=== PATIENT | female | born 1955 | race Caucasian/White ===

== ENCOUNTER 2016-12-18 16:45 | Inpatient (IN) | payer OTHER ==
[2016-12-18 18:21] LABS: Hematocrit 27 % (35-47); Hemoglobin 9.3 g/dl (12.0-16.0); Mean Corpuscular HGB Conc 34 g/dl (31-36); Mean Corpuscular Hemoglobin 30 pg (27-31); Mean Corpuscular Volume 90 fL (80-97); Mean Platelet Volume 8 um3 (7.4-10.4); Red Blood Count 3.05 10^6/ul (4.0-5.4); Red Cell Distribution Width 16 % (10.5-15); White Blood Count 22.9 10^3/ul (3.5-10.8)
[2016-12-18 18:34] LABS: Albumin 3.2 g/dL (3.2-5.2); Calcium 9.1 mg/dL (8.6-10.3); EGFR African American 16.9 (>60); EGFR Non-African American 13.1 (>60); Globulin 3.8 g/dL (2-4); Total Bilirubin 0.7 mg/dL (0.2-1.0)
[2016-12-18 18:37] LABS: Potassium 5.4 mmol/L (3.5-5.0)
[2016-12-18] MEDS ORDERED: Vancomycin(*) 1,500 MG in NS 0.9% 250 ML* 250 ML IVPB ONE (18:49)
[2016-12-18 18:53] LABS: BUN/Creatinine Ratio 52.1 (8-20)
[2016-12-18] MEDS ORDERED: NS 0.9% 250 ML* 250 ML IV SCH (19:00)
[2016-12-18] MEDS ORDERED: Metolazone TAB* 5 MG PO ONE (20:52)
[2016-12-18] MEDS ORDERED: Furosemide IV* 10 MG/ML VIAL (40 MG) IV SLOW PU ONE (20:52)
[2016-12-18] MEDS ORDERED: Acetaminophen TAB* 325 MG PO PRN (20:52)
[2016-12-18] MEDS ORDERED: cefTRIAXone VIAL(*) 1,000 MG in NS 0.9% 50 ML* 50 ML IVPB SCH (21:00)
[2016-12-18] MEDS ORDERED: nitroGLYCERIN DRIP* 25,000 MCG in PREMIX* 0 ML IV SCH (21:00)
[2016-12-18] MEDS ORDERED: Dextrose 50% Syringe 50 ML* 25 GM/50 ML SYRINGE IV PUSH PRN (21:01)
[2016-12-18 21:05] LABS: Urine Bacteria 1+ (Absent); Urine Bilirubin Negative (Negative); Urine Glucose Negative (Negative); Urine Nitrite Negative (Negative)
--- NOTE | 2016-12-18 21:19 | RAD ---
Indication: Rales, sepsis. Single frontal view of the chest performed at 2040 hours was reviewed. Comparison is made with previous exam dated October 28, 2015. Cardiomegaly is noted. Right perihilar infiltrate is noted which is suspicious for pneumonia. No pleural fluid is identified. Right upper lobe right base appears to BE relatively clear. IMPRESSION: RIGHT PERIHILAR DENSITY CONSISTENT WITH RIGHT PERIHILAR PNEUMONIA.
[2016-12-18] MEDS ORDERED: Albuterol 2.5 MG/3 ML NEB.SOL* (0.083%) INH PRN (21:33)
[2016-12-18] MEDS: Milrinone* 100 ML IVPB SCH (22:53)
--- NOTE | 2016-12-18 23:03 | CONS ---
NEPHROLOGY CONSULTATION: DATE OF CONSULTATION: 12/18/16 HISTORY OF PRESENT ILLNESS: Ms. Collado is a 59-year-old female with a history of end-stage congestive heart failure who presents with decreased urinary output , weakness, and fatigue. She has had some anorexia. Interestingly enough, she states that she was not breathing bad and while she has to sit up to breathe, she does not complain of real orthopnea. I think her mental acuity may not be all that great right now. She has been noticing a little bit worsening edema. Here in the emergency room, she has been found to have a markedly elevated serum BUN and an elevated serum creatinine. PAST MEDICAL HISTORY: Includes COPD with both restrictive and obstructive component. She has a history of congestive heart failure with cor pulmonale. She has a history of diabetes mellitus type 2, an old history of colon cancer, and she has a known ejection fraction of less than 20%. She has been declined for a left ventricular assist device and for heart transplant. MEDICATIONS: Have included: 1. Magnesium 400 mg twice a day. 2. Metolazone 2.5 mg 3 times a week. 3. Spiriva 1 capsule daily. 4. Aspirin 81 mg daily. 5. Vitamin C 500 mg daily. 6. Morphine 1 to 2 mg every 2 hours. 7. Reglan 5 mg t.i.d. 8. Claritin 10 mg daily. 9. Ventolin 2.5 mg inhaled every 4 hours p.r.n. 10. Nicotine patch 14 mg transdermally daily. 11. Lantus daily. 12. Trazodone 50 mg at bedtime. 13. Demadex 20 mg daily. 14. P.r.n. Xanax. 15. Spironolactone 50 mg daily. 16. Potassium 20 mEq daily. 17. Omeprazole 40 mg daily. 18. Metoprolol 25 mg daily. 19. Advair 1 puff twice a day. 20. Sliding scale of insulin 21. Atorvastatin 80 mg daily. ALLERGIES: She is allergic to DARVON. FAMILY HISTORY: Significant in that her mother had a myocardial infarction. SOCIAL HISTORY: She is . Lives with her . She still smokes 5 cigarettes per day. She has not used alcohol. REVIEW OF SYSTEMS: She thinks she has a urinary tract infection. She had some dysuria recently before she stopped passing urine. She has no visual disturbances. No chest pain. There is anorexia. She has had some nausea, but no vomiting. There are no arthropathies. PHYSICAL EXAM: She is an obese white female who actually appears to be quite comfortable lying at about 45 degrees of elevation. Her heart rate is 101. Blood pressure is 112/66 with a respiratory rate of 18. Her O2 saturation was 96%. There is no jugular venous distention. She is anicteric. Her mucous membranes are dry. She has been mouth breathing. She had bibasilar rales. The heart revealed a regular rhythm. I could not hear any murmurs. The abdomen is distended, nontender. While I could not feel a liver margin, she had a positive hepatojugular reflux. extremities revealed minimal acrocyanosis. She had 2+ edema. DIAGNOSTIC STUDIES/LAB DATA: Review of her laboratory values reveals a white count of 22.9, hemoglobin of 9.3, hematocrit of 27. Sodium 116, potassium 5.4, total CO2 32 with chloride of 72, BUN is 184. Her baseline BUN in October was in the 80s and 90 range. Her creatinine is 3.53. Her creatinine in October was approximately 2. A urinalysis has not been produced at present. A Avalos catheter is being placed. IMPRESSION: Acute on chronic renal insufficiency. This is highly likely to be on the basis of worsening congestive heart failure. It is manifested by markedly widening BUN to creatinine ratio. She may have urinary tract infection as a decompensating factor. In addition, she has hyponatremia and hyperkalemia. DISCUSSION: I think dialysis is out of the question. In her situation, she will not be able to make compensation with her cardiac output without any fluid that is removed rapidly removed by dialysis. CVVH is not available at the present time here. It is the opinion of the emergency room staff that she would not be stable enough to be transferred for that. As a result, I think we are going to need to try to diurese some fluid out of her without producing intractable shock. I would wrap her legs and arms in Vasquez wraps. I started her on some nitrates by drip so that it could be titrated. I will start her on some intravenous morphine to also vasodilator on the venous circulation. Obviously, her prognosis is markedly guarded. I have discussed her case with Dr. Dallas and Armand Aguilar as well as Dr. Krueger here in the emergency room. [id number]/[facility] #: [id number] TOMER
[2016-12-18] MEDS: Albuterol/Ipratropium NEB.SOL* Albuterol 2.5 MG/Ipratropium 0.5 MG 3 ML INH SCH (23:08)
[2016-12-18 23:10] LABS: PCO2 Arterial 59 mmHg (35-45)
[2016-12-18] MEDS ORDERED: DOXYcycline IV* 100 MG in NS 0.9% 250 ML* 250 ML IVPB SCH (23:30)
[2016-12-19 00:16] LABS: Calcium 8.7 mg/dL (8.6-10.3); EGFR African American 16.9 (>60); EGFR Non-African American 13.1 (>60)
[2016-12-19 00:37] LABS: BUN/Creatinine Ratio 53.8 (8-20)
--- NOTE | 2016-12-19 00:44 | HP ---
CC: Dr. Perez; Dr. Rizvi; Dr. Bettencourt; Dr. Abernathy; Dr. Gerber * HISTORY AND PHYSICAL: DATE OF ADMISSION: 12/18/16 PRIMARY CARE PROVIDER: Dr. Perez. ATTENDING PHYSICIAN WHILE IN THE HOSPITAL: Dr. Charlee Dallas * (report dictated by Maciej Aguilar NP). CONSULTING CRACK OFF PERSON: Dr. Rizvi. CONSULTING SUPERVISOR RECEIVING AND PROCESSING: Dr. Bettencourt. CONSULTING GATE ATTENDANT: Dr. Abernathy. CHIEF COMPLAINT: 1. Shortness of breath. 2. Altered mental status. HISTORY OF PRESENTING ILLNESS: Mrs. Collado is a 61-year-old female patient with a very complex medical history. She carries a history of COPD, CHF, history of diabetes, cardiomyopathy, her last known EF here was less than 20%, coronary artery disease. She has been evaluated at [facility] for LVAD and heart transplant and they had said that she would not be a candidate due to her severe COPD. They felt that she will not survive the procedure and not be able to be liberated from the ventilator, so these procedures were not offered. Unfortunately, for the last couple of weeks, she has had progressive worsening decline. They have noticed for the last 48 hours that she has not been making any urine. She has been having difficulty with mentation. She had been drowsy and they have noted that she has probably made a cup of urine. The family was concerned today because she was more sleepy, more drowsy and she came into the hospital. The patient admits of feeling of having orthopnea. She denies having any chest discomfort and denies having any abdominal pain and no recent fevers or chills, but she does admit that she has been feeling more drowsy, more tired, and more lethargic. The patient was came in, was evaluated. It was noted that she appear to be in acute renal failure. She appeared to have a white count of 22,000. In addition to this, she was hyponatremia. She appeared to be fluid overloaded. Because of these findings, we were asked to evaluate for admission. PAST MEDICAL HISTORY: Significant for: 1. COPD, on chronic oxygen. 2. CHF. 3. Diabetes. 4. Cardiomyopathy, last known EF was less than 20%. 5. CAD, single-vessel disease. PAST SURGICAL HISTORY: She has had heart catheterization in [place] and she had tubal ligation. HOME MEDICATIONS: According to the bottles brought in includes: 1. Insulin lispro sliding scale. 2. Lantus 30 units subcu q.p.m. 3. Xanax 0.25 mg p.o. t.i.d. as needed. 4. Roxanol 1 mL p.o. every 4 hours as needed. 5. Trazodone 50 mg p.o. at bedtime as needed. 6. Spiriva 1 capsule inhaled daily. 7. Advair 1 puff inhaled b.i.d. 8. Ventolin 2.5 mg inhaled every 4 hours as needed. 9. Prilosec 40 mg p.o. daily. 10. Reglan 5 mg p.o. t.i.d. 11. Demodex 80 mg p.o. b.i.d. 12. Potassium chloride 20 mEq p.o. daily. 13. Metolazone 2.5 mg p.o. daily. 14. Magnesium oxide 400 mg p.o. b.i.d. 15. Lipitor 80 mg p.o. daily. 16. Claritin 10 mg daily. 17. Ibuprofen 800 mg every 8 hours as needed. 18. Spironolactone 50 mg p.o. daily. 19. Metoprolol 25 mg p.o. daily. 20. Aspirin 81 mg daily. ALLERGIES TO MEDICATIONS: Include DARVOCET. FAMILY HISTORY: Mother had a history of CAD. Father's history is unknown. SOCIAL HISTORY: She is a half a pack a day smoker. She does not drink alcohol. Surrogate decision maker is her and her [id number]. REVIEW OF SYSTEMS: There is a weight change, she is unsure of how much. She denied any fevers or chills. She denied having any abdominal pain. There was no nausea. There was no vomiting. She denied having any chest pain or shortness of breath. She denied having any abdominal pain. She denied any chest pain. She denied having any loss of consciousness. No pruritus and no skin ulcerations. Review of 14 systems completed, all others negative. PHYSICAL EXAMINATION GENERAL: At this time, Mrs. Collado is a 61-year-old female patient. She is sitting in the ED stretcher. She awakens to her name only, but she is very drowsy. VITAL SIGNS: Blood pressure 112/66, pulse 101, respirations 18, O2 sat 95%, temperature 97.5. HEENT: Head: Atraumatic. Eyes: Pupils are reactive to light. Throat: Oral mucosa appears to be moist. No oropharyngeal erythema. NECK: Supple. LUNGS: She did have rhonchi in the upper lobes, crackles in the bases. Equal diaphragmatic expansion. HEART: Sounds S1, S2. Regular rate and rhythm. No murmurs, rubs, or gallops. ABDOMEN: Soft, flat, nontender. Bowel sounds present. EXTREMITIES: She had +3 pitting edema bilaterally. She had 5/5 strength. NEUROLOGICAL: Again drowsy. She will awaken to her name. She will follow simple commands and then she quickly falls back asleep. No gross focal deficits. SKIN: Intact. DIAGNOSTIC STUDIES/LAB DATA: WBC of 22.9, RBC of 3.05, hemoglobin 9.7, hematocrit of 27. Her baseline H and Hs previously read around 11 and 10. The sodium was 116, potassium 5.4, chloride is 72, bicarb 32, BUN 187, creatinine of 3.53, glucose 81, lactate 0.7, calcium 9.1. Total bili 0.7, AST 31, ALT 17, alk phos 228. BNP 237. Albumin of 3.2. Urine showed 3+ leukocyte esterase, 1 + bacteria. Chest x-ray obtained today, impression: Right perihilar density consistent with right perihilar pneumonia. EKG obtained today shows a sinus tachycardia at a rate of 90 with a left bundle branch block incomplete. The EKG appears to be unchanged, previously she appeared to be in aflutter. Last echo did show an EF of less than 20%. Old medical records reviewed. ASSESSMENT AND PLAN: Mrs. Collado is a 61-year-old female patient with complex medical history, coming in the ER today with complaints of altered mental status , not feeling well, decreased urinary output. On evaluation here today, she was noted to have multiple abnormalities and possible pneumonia. She will be admitted under inpatient status for: 1. Congestive heart failure exacerbation with now associated acute renal failure most likely cardiorenal. This was probably brought on by an underlying infection such as pneumonia. She has the white count here. Unfortunately giving her fluids at this point, she does appear to be fluid overloaded. We cannot give her fluids. The plan would be at this point to treat the infection with IV antibiotics and also treat her congestive heart failure and her renal failure with aggressive therapy. I am actually going to diurese her and put her on milrinone as well, Zaroxolyn, Lasix. Dr. Bettencourt did order recommended trying wrapping lower extremities and the upper extremities without the IV until tomorrow morning when he evaluates the patient to see if we can increase venous return and hopefully we can again with no known increase the inotropic activity and hopefully increase her cardiac output and hopefully diurese the fluid as she does appear to be actually fluid overloaded at this point. We will give her Lasix. We will also put her on nitro. In addition to this, we will give her some morphine as well along with Lasix and metolazone. We will get an echo. We will cycle her troponins. Cardiology was consulted. They recommended again Lasix, metolazone, possibly dobutamine. We are going to use milrinone, as previously dobutamine has made her renal function much worse. 2. Pneumonia. Again, we will put her on doxycycline, in addition to this Rocephin. We will try to get sputum cultures if possible. Blood cultures were sent. She has been pancultured and we will follow closely. I did order nebs and I am going to hold off on steroids as this could exacerbate her heart failure. 3. Diabetes. She will be on lispro sliding scale every 6 hours. We are holding, as she is n.p.o. 4. Acute renal failure. Again, this is probably cardiorenally from decreased cardiac output state and now again being exacerbated by pneumonia. We will treat the pneumonia and try to increase cardiac output with milrinone. 5. Coronary artery disease. She is not complaining of chest pain. We will continue to follow. 6. DVT prophylaxis. She will be placed on heparin subcu. 7. Code status. She is actually a DNR/DNI. 8. Hyponatremia. This is probably secondary to fluid overload. I do note that her H and H is down too. Again, this is probably delusional from fluid overload, which we are again going to aggressively try to treat her with nitro, morphine, Lasix, metolazone, and lower extremity wrapping and upper extremity wrapping as well. For the acute renal failure, again I will check CLL workup and Dr. Bettencourt has been evaluated. Dialysis was again not offered, as she will not most likely survive it. 9. Fluids, electrolytes, and nutrition. She is n.p.o. Should she awake, we are going to consistent carb diet. 10. Prognosis is extremely poor in this patient. She has multisystem organ failure secondary to again poor cardiac output due to cardiomyopathy, in addition to this also has severe chronic obstructive pulmonary disease, requiring O2, in addition to this also appears to be in renal failure. Prognosis is poor. I did discuss with the family that despite these efforts, she could deteriorate still and at that point, the family felt that they actually wanted to turn off her external defibrillator because they want to make her do no resuscitate/do not intubate. At this point, they said if she were to fail, they would want to keep her comfortable. I did discuss this with my attending, Dr. Dallas, she is in agreement. TIME SPENT: Time spent on the admission was 90 minutes is critical care time, greater than half the time was spent [id number] with the patient, other half of the time spent going over the plan of care with the patient and implementing the plan of care. I did discuss the plan of care with my attending, they are in agreement. MACIEJ AGUILAR NP [id number]/[facility] #: [id number] MTDNabil
[2016-12-19] MEDS: Insulin LISPRO* 1 UNITS UNIT SUBCUT SCH ×3 (00:47→13:57)
[2016-12-19] MEDS ORDERED: nitroGLYCERIN DRIP* 25,000 MCG in PREMIX* 0 ML IV SCH (00:48)
[2016-12-19] MEDS ORDERED: nitroGLYCERIN DRIP* 250 ML ONE (01:01)
[2016-12-19] MEDS: Morphine INJ* 2 MG/ML 1 ML SYRINGE (TWO MG - NEW SYRINGE VERSION) IV PRN ×5 (01:03→13:57)
[2016-12-19 01:42] LABS: Potassium 5.7 mmol/L (3.5-5.0)
[2016-12-19] MEDS: Albuterol/Ipratropium NEB.SOL* Albuterol 2.5 MG/Ipratropium 0.5 MG 3 ML INH SCH ×5 (03:02→16:44)
[2016-12-19 05:20] LABS: Hematocrit 23 % (35-47); Hemoglobin 7.9 g/dl (12.0-16.0); Mean Corpuscular HGB Conc 34 g/dl (31-36); Mean Corpuscular Hemoglobin 31 pg (27-31); Mean Corpuscular Volume 91 fL (80-97); Mean Platelet Volume 8 um3 (7.4-10.4); Red Blood Count 2.57 10^6/ul (4.0-5.4); Red Cell Distribution Width 16 % (10.5-15); White Blood Count 18.3 10^3/ul (3.5-10.8)
[2016-12-19 05:28] LABS: Calcium 8.3 mg/dL (8.6-10.3); EGFR African American 16.1 (>60); EGFR Non-African American 12.5 (>60)
[2016-12-19] MEDS ORDERED: NS 0.9% 250 ML* 250 ML IV ONE (05:35)
[2016-12-19 05:41] LABS: Potassium 5.9 mmol/L (3.5-5.0)
[2016-12-19 06:08] LABS: BUN/Creatinine Ratio 51.4 (8-20)
[2016-12-19] MEDS ORDERED: Dextrose 50% Syringe 50 ML* 25 GM/50 ML SYRINGE IV PUSH PRN (07:00)
[2016-12-19] MEDS ORDERED: Insulin REGULAR(*) 1 UNITS UNIT IV PUSH ONE (07:00)
[2016-12-19] MEDS ORDERED: Budesonide NEB* 0.5 MG/2 ML NEB.SOLN INH SCH (07:00)
[2016-12-19] MEDS ORDERED: Sodium Polystyrene ORAL.SOL* 15 GM/60 ML BTL PO ONE (07:01)
[2016-12-19] MEDS ORDERED: Calcium Gluconate INJ* 1 GM in NS 0.9% 50 ML* 50 ML IVPB ONE (08:00)
[2016-12-19] MEDS ORDERED: Atropine 1% (ORAL/SL)* 15 ML BTL SL PRN (08:50)
[2016-12-19] MEDS ORDERED: Nicotine Inhaler* 10 MG AMP INH PRN (08:50)
[2016-12-19] MEDS ORDERED: Mouth Piece, Nicotine* 1 EACH CARTRIDGE INH PRN (08:50)
[2016-12-19] MEDS ORDERED: Nicotine PATCH 14 MG/24 HR* PATCH TRANSDERM SCH (09:00)
--- NOTE | 2016-12-19 10:03 | PN ---
PROGRESS NOTE DATE: 12/19/16 Ms. Collado has not done very well over night. Her blood pressure has been quite low, typically in the 60s. She has not responded with very much urine at all. She's arousable this morning. She complains of pain all over. She seems to be breathing rather easily to observed her. Her O2 saturation is in the mid 90s to 98. Her chest reveals scattered rhonchi. Heart revealed a regular rhythm without murmurs. She still has 2+ edema. White count is 18.3, hemoglobin 7.9, sodium is still 116, potassium now 5.9. She has received Kayexalate. BUN 189, creatinine 3.68. IMPRESSION: 1. Congestive heart failure. 2. Acute renal injury. 3. Hyponatremia. 4. Hyperkalemia. I don't think we have much more to offer at the present time. Dr. Pompa has been in contact with her , and apparently she's going to be moving to hospice- based mode of intervention. I have no new recommendations at this point. [id number]/[facility] #: [id number] [facility]
[2016-12-19] MEDS: LORazepam INJ* 2 MG/ML 1 ML VIAL IV PUSH PRN ×2 (10:24→13:57)
--- NOTE | 2016-12-19 11:46 | CONS ---
CC: Dr. Misael Perez, Hospitalist Service; Dr. Fox Gerber * CONSULTATION REPORT: DATE OF CONSULTATION: 12/19/16 REASON FOR CONSULTATION: Biventricular congestive heart failure. CHIEF COMPLAINT: Swelling. HISTORY OF PRESENT ILLNESS: Lizz Collado is a 61-year-old woman followed by my partner, Dr. Fox Gerber, with biventricular cardiomyopathy and longstanding stage 4 congestive heart failure. She is an active smoker and has had progressive swelling of the bodies, particularly her legs, for which she presented. In the emergency department, she was found to be hyponatremic, anuric, volume-overloaded, and hypotensive. The patient continues to feel poorly this morning. She denies feeling more short of breath and she was vague about the specifics of her discomfort. The patient denied any recent changes in medication, admits to ongoing smoking. PAST MEDICAL HISTORY: 1. Severe biventricular congestive heart failure: Echo from 09/19/15 shows a left ventricular ejection fracture 25% to 30%, moderate decrease in RV systolic function, trace mitral insufficiency, mild tricuspid insufficiency, and PA pressure 55 mmHg. 2. COPD, severe, chronic oxygen. PFTs in 2016 showed severe combined obstructive restriction and severely reduced diffusion. 3. Renal insufficiency (baseline creatinine in 2016 approximately 1.7). 4. Diabetes. 5. Sleep apnea. 6. Depression. 7. Reflux. 8. Anxiety. 9. Obesity. 10. Coronary artery disease. 11. Left heart cath done at [facility] on 05/25/15 showed single - vessel disease, severe in the right coronary artery and branch OM1 with collateral flow. 12. Consultation with [facility] done in 2016 extensively, not a candidate for LVAD or RVAD. She is not a candidate for heart transplant due to severe pulmonary disease, not felt to be a candidate for a defibrillator or PUBLICITY MANAGER device. PAST SURGICAL HISTORY: Includes tubal ligation and past procedural history includes multiple cardiac catheterizations. MEDICATIONS: Inpatient include: 1. Tylenol. 2. Ventolin nebulizer. 3. DuoNeb. 4. Atropine p.r.n. 5. Pulmicort nebulizers. 6. Ceftriaxone. 7. Nicotine mouth piece. 8. Doxycycline. 9. Humalog insulin. 10. Ativan p.r.n. 11. Primacor drip. 12. Morphine p.r.n. 13. Nicotine inhaler. 14. Nicotine patch. Outpatient medications had included: 1. Albuterol. 2. Trazodone. 3. Prilosec. 4. Spironolactone 50 mg a day. 5. Oxygen. 6. Atorvastatin 80 mg a day. 7. Lantus and Humalog insulin. 8. Magnesium oxide. 9. Torsemide 20 mg a day. 10. Toprol-XL 25 mg a day. 11. Advair Diskus. 12. Aspirin 81 mg a day. 13. Morphine sulfate. 14. Cipro. 15. Prednisone 20 mg a day (as of 10/17/16). ALLERGIES: Include DARVON (nausea, vomiting). FAMILY HISTORY: Significant for coronary disease with her mother. Father's history is unknown. SOCIAL HISTORY: The patient is an active smoker as above. Drinks coffee regularly. . Her is active in her care. No history of alcohol intake. REVIEW OF SYSTEMS: Positive for progressive increasing swelling in the lower extremities, chronic orthopnea, chronic exertional dyspnea. She said she has been anorexic. She has not been urinating much. She denies chest pain, pressure, heaviness. She denies any recent fevers, chills, sweats, coughing, headaches, earaches, or dysuria. All other 14-point review of systems is negative. PHYSICAL EXAM: The patient is lying in bed, 20 degrees, with a Ventimask on, appears chronically ill. She is 5 feet 3 inches, weighs 158 pounds. Blood pressure 75/23, pulses of 110-115, sinus tachycardia, oxygen saturation with her Ventimask is 95% to 97% (10 L oxygen flow), temperature 97.9. Neurologically, she is arousable, but is not wanting to talk much. She does follow commands. Speech is articulate. Comprehension is good. Formal neurological exam not done. I do not appreciate gross sensory or motor deficits , but she is not very cooperative. Skin: Very dry, rough, sand-papery. I did not appreciate cyanosis of the lips. HEENT: Pupils are equal and round. Mucous membranes dry. Neck: Hard to evaluate due to positioning, but no pulsatile veins noted. No thyromegaly appreciated. Lungs: Breath sounds diffuse rhonchi anteriorly and posteriorly, more prominent posteriorly. No wheezing heard. Diminished breath sounds anteriorly. Coronary: S1, S2, regular , tachycardic with a gallop. No murmurs heard. Abdomen: Right upper quadrant is tender with a pulsatile, enlarged liver. No epigastric discomfort appreciated. I did not get an optimal exam due to the patient's tenderness. Lower extremities show swelling below the knees, 2 to 3+. She has some ecchymosis near the right mid toe, mild, appears superficial. DIAGNOSTIC STUDIES/LABORATORY DATA: Sodium 116, potassium 5.9, chloride 73, bicarb 27, BUN 189, creatinine 3.68, glucose 113. ALT 17, AST 31. BNP of 237. Urinalysis: Specific gravity 1.012, 1+ blood, 3+ leukocyte esterase, 3+ white cells. ABG from the shows pH 7.38, pCO2 59, pO2 96, oxygen saturation 93.4. White count 18.3, hemoglobin 7.9, hematocrit 23, and platelets 219. EKG from 10/18/16 shows sinus tachycardia, having trouble bringing this up. Chest x-ray showed right perihilar density consistent with right perihilar pneumonia. Outpatient Studies: Echocardiogram as above. SUMMARY: Lizz Collado is a 61-year-old woman with severe chronic obstructive pulmonary disease, severe biventricular congestive heart failure, and history of significant renal insufficiency in the past, now presenting with volume overload, lower extremity edema, and severe hypotension, which I feel represents end-stage disease, combination of end-stage pump failure and end- stage chronic obstructive pulmonary disease contributing to severe renal insufficiency. In terms of her trying to improve her cardiac output, mechanical solutions are not an option as above. She has been extensively evaluated at the [facility] in the past. Milrinone has been tried in the past to assist with stabilization and very reasonable to re-try, but in the past has not led to durable stabilization. She is currently not a good candidate for IV diuretics due to her profound hypotension. Pressors could be tried, but there is significant risk with this of additional sinus tachycardia, AFib, ventricular dysrhythmias. I feel Lizz is end-stage and an appropriate candidate for comfort measures such as [facility]. If we proceed with this, I would recommend discontinuation of the LifeVest. Her electrolyte abnormalities are noted and I feel related to her renal insufficiency as well as her congestive heart failure, but we will defer to Dr. Hesson in terms of stabilization. I do not feel Cardiology has any additional recommendations to offer over those that have been tried in the past. Thank you for allowing me to assist in this nice, but very ill and unfortunate woman's care. [id number]/[facility] #: [id number] MTDD
--- NOTE | 2016-12-19 13:49 | PN ---
Subjective Date of Service: 12/19/16 Interval History: HOSPITALIST PROGRESS NOTE Patient seen and examined at bedside. Lying in bed, moaning, answers questions when asked, but does not open eyes. Denies pain, but doesn't feel well. Family History: Unchanged from Admission Social History: Unchanged from Admission Past Medical History: Unchanged from Admission Objective Active Medications: Acetaminophen (Tylenol Tab*) 650 mg PO Q4H PRN PRN Reason: FEVER/PAIN Albuterol (Ventolin 2.5 Mg/3 Ml Neb.Dena*) 2.5 mg INH Q4H PRN PRN Reason: SHORTNESS OF BREATH Albuterol/Ipratropium (Duoneb (Albuterol 2.5 Mg/Ipratropium 0.5 Mg)) 1 neb INH Q4H [facility] Last Admin: 12/19/16 12:12 Dose: 1 neb Atropine Sulfate (Atropine 1% (Oral/Sl)*) 2 drop SL Q2H PRN PRN Reason: Terminal secretions Budesonide (Pulmicort Neb*) 0.5 mg INH RT.BID [facility] Last Admin: 12/19/16 07:40 Dose: 0.5 mg Device (Nicotine Mouth Piece*) 1 each INH .USE WITH NICOTROL PRN PRN Reason: CRAVING Dextrose (D50w Syringe 50 Ml*) 12.5 gm IV PUSH .FOR FS < 60 - SS PRN PRN Reason: FS < 60 Dextrose (D50w Syringe 50 Ml*) 25 gm IV PUSH ONCE PRN PRN Reason: FS < 60 Last Admin: 12/19/16 08:41 Dose: 25 gm Milrinone Lactate/Dextrose (Primacor*) 100 mls @ 5.613 mls/hr IVPB .Q24H WES PRN Reason: 0.25 MCG/KG/MIN Last Admin: 12/18/16 22:53 Dose: 5.613 mls/hr Ceftriaxone Sodium 1,000 mg/ (Sodium Chloride) 50 mls @ 200 mls/hr IVPB Q24H [facility] Last Admin: 12/18/16 23:47 Dose: 200 mls/hr Doxycycline Hyclate 100 mg/ (Sodium Chloride) 250 mls @ 250 mls/hr IVPB Q12H [facility] Last Admin: 12/19/16 00:29 Dose: 250 mls/hr Insulin Human Lispro (Humalog*) 0 units SUBCUT Q6HR [facility] PRN Reason: Protocol Last Admin: 12/19/16 06:09 Dose: 2 units Lorazepam (Ativan Inj*) 0.5 mg IV PUSH Q4H PRN PRN Reason: ANXIETY Last Admin: 12/19/16 10:24 Dose: 0.5 mg Morphine Sulfate (Morphine Inj (Syringe)*) 2 mg IV Q2H PRN PRN Reason: Pain/Tachypneic RR>24 Last Admin: 12/19/16 10:24 Dose: 2 mg Nicotine (Nicotine Inhaler*) 10 mg INH Q2H PRN PRN Reason: CRAVING Nicotine (Nicotine Patch 14 Mg/24 Hr*) 1 patch TRANSDERM DAILY [facility] Last Admin: 12/19/16 12:05 Dose: 1 patch Pharmacy Profile Note (Nicotine Patch Removal Note*) 1 note FOLLOW UP 2100 [facility] Vital Signs 12/19/16 12/19/16 12/19/16 11:00 11:15 12:10 Temperature 98.6 F 98.6 F Pulse Rate 114 118 110 Respiratory 14 12 20 Rate Blood Pressure 86/38 72/41 (mmHg) O2 Sat by Pulse 91 90 93 Oximetry Oxygen Devices in Use Now: Nasal Cannula - 3 liters Appearance: Middle aged lady lying in bed in [facility], but appears uncomfortable. Eyes: No Scleral Icterus Ears/Nose/Mouth/Throat: Mucous Membranes Moist Neck: Trachea Midline Respiratory: Symmetrical Chest Expansion and Respiratory Effort, - - BS+ bilaterally with bilateral crackles Cardiovascular: RRR - Normal S1 and S2 Abdominal: - - Soft, tender hepatomegaly, NG, NR, BS+ Extremities: - - Bilateral 2+ LE pitting edema Neurological: - - Arousable to voice, Ox2 (self and place) Lines/Tubes/Other Access: Clean, Dry and Intact Peripheral IV Nutrition: Taking PO's Result Diagrams: 12/19/16 04:45 12/19/16 04:45 Assess/Plan/Problems-Billing Assessment: Mrs. Collado is a 61yo F with PMH of severe biventricular CHF with EF 25%, severe COPD on home O2, current tobacco abuse, CKD stage 3, type 2 DM, YUE, CAD , who presented to ED with c/o progressive SOB, edema, and oliguria. - Patient Problems (1) End stage heart failure Comment: - Cardiology input appreciated - patient has advanced disease, not a candidate for ICD, LVAD, or transplant. - Milrinone can be continued, but did not lead to durable stabilization in the past. - Dr. Mariano feels Cardiology does not have any other recommendations to add. (2) Cardiorenal syndrome with renal failure Comment: - Patient has CKD at baseline, now with worsening edema, low urine output, and elevated creatinine. - Nephrology input appreciated - Dr. Bettencourt feels he does not have anything else to offer at this time. (3) Advanced chronic obstructive pulmonary disease Comment: - Despite advanced disease and oxygen dependency, patient continues to smoke. - No signs of exacerbation at this time. - Continue bronchodilators and steroids. (4) Acute on chronic respiratory failure with hypoxemia Comment: - Multifactorial secondary to COPD, CHF, pneumonia. - Continue supplemental O2. (5) Severe sepsis Comment: - Met sepsis criteria on admission with tachycardia and leukocytosis, has respiratory and renal failures. - Source is pneumonia. (6) Pneumonia Comment: - CxR shows right perihilar infiltrate. - Blood cultures show no growth so far. - Check Legionella and pneumococcal Ags. - Continue Ceftriaxone and Doxycycline. (7) DM type 2 (diabetes mellitus, type 2) Comment: - Continue FS and Lispro SS. (8) DVT prophylaxis Comment: - Goal now is comfort, will not give SQ heparin. - SCDs as tolerated. (9) DNR (do not resuscitate) (10) End of life care Comment: - Lengthy conversation with patient's - he understands her very poor condition and is very realistic about her poor prognosis. Interested in Hospice - consult already requested. He states her LifeVest battery was already disconnected. Status and Disposition: Inpatient.
[2016-12-19] MEDS: Milrinone* 100 ML IVPB SCH (15:29)
[2016-12-19] MEDS ORDERED: Morphine INJ* 4 MG/ML 1 ML CARPUJECT IV PRN (15:51)
[2016-12-19] MEDS ORDERED: Milrinone* 100 ML IVPB SCH (16:00)
[2016-12-19] MEDS ORDERED: Nicotine Patch Removal NOTE FOLLOW UP SCH (21:00)
[2016-12-20 04:50] VITALS: BP 0/0
--- NOTE | 2016-12-20 05:13 | PN ---
Progress Note - Progress Note Date of Service: 12/20/16 Note: I was called by the patient's nurse at 0235 that the patient was asystolic and presented to the bedside. Her family was in the waiting room and they were brought back to the patient's bedside. I auscultated the patient's chest and heard no breath sounds or heart sounds. Time of was called at 0235. Cause of cardiogenic shock secondary to cardiorenal syndrome, end stage CHF and end stage COPD contributing.
--- NOTE | 2016-12-20 15:03 | DS ---
CC: Dr. Gerber; Dr. Perez* DISCHARGE/ SUMMARY: DATE OF ADMISSION: 12/18/16 DATE OF /DISCHARGE: 12/20/16 PRIMARY CARE PROVIDER: Dr. Perez. SENIOR BUSINESS BROKER: Dr. Gerber. HOSPITAL COURSE: Ms. Collado was a 61-year-old female with a history of end- stage COPD, end-stage systolic congestive heart failure with an EF less than 20% , on a LifeVest, who presented to the emergency room with shortness of breath and altered mental status. The patient had progressive decline over the couple of weeks prior to admission. Over 48 hours prior to admission, the patient had not been making any urine and had been having a difficult time with mentation. The patient was found to be in acute renal failure and possibly septic secondary to pneumonia. Additionally, the patient was fluid overloaded. The patient was admitted to the intensive care unit after consultation with Dr. Bettencourt. Unfortunately, the patient became severely hypotensive. She was requiring milrinone. Ultimately, the patient was made comfort care in the evening of 12/19/16. The morning of 12/20/16, the patient had a prolonged episode of ventricular tachycardia. The patient's family had previously taken the battery out of her LifeVest, as they did not want her shocked. Following the ventricular tachycardia, the patient became asystolic. At 02:35, I was contacted by the patient's nurse that the patient had . I immediately presented to the bedside and auscultated the patient's chest and heard no heart or breath sounds. Time of was called at 02:35 on 12/20/16. Cause of is cardiogenic shock secondary to cardiorenal syndrome and end-stage systolic CHF. Contributing factors include end-stage COPD and acute renal failure. [id number]/CPS #: [id number] MTDD
== END 2016-12-20 02:35 | disposition expired | DRG 720 ==
LOC: ED 16:45 → ICU 20:52 → MED 12-19 16:14 → ICU 12-19 16:14
PROVIDERS: ADMIT Hospitalist; ATTEND Hospitalist
DX: A41.9 Sepsis, unspecified organism (principal); J18.9 Pneumonia, unspecified organism; R57.0 Cardiogenic shock; J96.21 Acute and chronic respiratory failure with hypoxia; I50.23 Acute on chronic systolic (congestive) heart failure; N17.9 Acute kidney failure, unspecified; I47.2 Ventricular tachycardia; N18.3 Chronic kidney disease, stage 3 (moderate); I13.0 Hypertensive heart and chronic kidney disease with heart failure and stage 1 through stage 4 chronic kidney disease, or unspecified chronic kidney disease; I42.9 Cardiomyopathy, unspecified; E87.1 Hypo-osmolality and hyponatremia; J44.0 Chronic obstructive pulmonary disease with (acute) lower respiratory infection; R65.20 Severe sepsis without septic shock; I25.10 Atherosclerotic heart disease of native coronary artery without angina pectoris; E11.9 Type 2 diabetes mellitus without complications; F17.210 Nicotine dependence, cigarettes, uncomplicated; I44.7 Left bundle-branch block, unspecified; Z66 Do not resuscitate; E11.22 Type 2 diabetes mellitus with diabetic chronic kidney disease; I50.84 End stage heart failure; I50.82 Biventricular heart failure; G47.33 Obstructive sleep apnea (adult) (pediatric); E87.5 Hyperkalemia; I08.1 Rheumatic disorders of both mitral and tricuspid valves; K21.9 Gastro-esophageal reflux disease without esophagitis; F32.9 Major depressive disorder, single episode, unspecified; E66.9 Obesity, unspecified; I48.91 Unspecified atrial fibrillation; I27.81 Cor pulmonale (chronic); Z99.81 Dependence on supplemental oxygen; Z98.51 Tubal ligation status; Z88.8 Allergy status to other drugs, medicaments and biological substances; Z68.28 Body mass index [BMI] 28.0-28.9, adult; Z85.038 Personal history of other malignant neoplasm of large intestine; Z82.49 Family history of ischemic heart disease and other diseases of the circulatory system
CPT/HCPCS: 36415; 36600; 71010; 80048; 80053; 81003; 81015; 82570; 82803; 83605; 83880; 84300; 85025; 85027; 87040; 87086; 87088; 87641; 93005; 94640; 94760; A9270-GY; J0610; J0696; J1940; J2060; J2260; J2270; J2543; J3370